=== PATIENT | male | born 1940 | race African-American/Black ===

== ENCOUNTER → 2021-02-13 | Outpatient (CLI) | payer MEDICARE ==
[~2021-02-13] MED LIST: ALEVE220 M1 PO; AMLODIPINE PO; GLIPIZIDE PO; LISINOPRIL PO; METFORMIN PO; METOPROLOL SUCC50 MG PO; REGADENOSON 0.4 MG/5 ML SYR IV ONE
== END ==
LOC: NM 09:35
PROVIDERS: ATTEND Internal Medicine Interventional Cardiology
DX: I10 Essential (primary) hypertension (principal); I20.8 Other forms of angina pectoris
CPT/HCPCS: 78452; 93017; A9502; J2785